=== PATIENT | male | born 1960 | race Caucasian/White ===

== ENCOUNTER 2024-11-11 13:38 | Inpatient (IN) | payer MEDICARE, BC ==
[~2024-11-11] VITALS: Ht 172.7 cm; Wt 98.0 kg
[~2024-11-11 13:38] MED LIST: ANASTROZOLE PO; GABAPENTIN PO; TEST200V33 IM; [UNRECOGNIZED DRUG - OTHER] PO
--- NOTE | 2024-11-11 13:44 | ELECTROCARDIOGRAPH REPORT ---
[facility] Test Date: 2024-11-11 Test Time: 13:41:09 Pat Name: [facility] Department: EMERGENCY ROOM Room: ED 5 Gender: M Paint Supervisor: FERNANDO : 1960 Requested By: CHRISTIANA SCOTT Order Number: [id number] Reading MD: Dr. Grayson Obrien Measurements Intervals Perry Rate: 107 P: 40 MI: 171 QRS: 116 QRSD: 103 T: -88 QT: 346 QTc: 462 Interpretive Statements Sinus tachycardia Probable left atrial enlargement Probable anterolateral infarct, acute Abnormal T, consider ischemia, inferior leads Electronically Signed On 11-11-2024 18:17:[address] Grayson Obrien Please click the below link to view image of tracing.
[2024-11-11 13:59] LABS: MEAN PLATELET VOLUME 8.6 FL (7.4-10.4); RED CELL DISTRIBUTION WIDTH 19.6 % (11.5-14.5)
--- NOTE | 2024-11-11 13:59 | Physician Documentation ---
History of Present Illness ~ Chief Complaint: See Chief Complaint Stated Complaint: SOB Time Seen by MD: 13:50 HPI 64-year-old male who presents with shortness of breath Per EMS, the patient was initially hypoxic with saturations in the 70s, speaking in 1 word sentences. He was placed on oxygen with good improvement. EKG showed possible STEMI on the read. He was given aspirin. The patient tells me that he began having symptoms yesterday afternoon. He reports gradually worsening shortness of breath, which became severe today. He denies fevers, productive cough, chest pain, abdominal pain, nausea or vomiting, or other new or different symptoms. He does report having leg swelling recently, and had an extensive cardiac workup that was unremarkable including a stress test with Dr. Rico. Currently, he states he feels much better now that he is on oxygen, denies significant shortness of breath or chest pain at this time. He does state it feels like it is hard to take a full breath. Medication Reconciliation Allergies: Coded Allergies: No Known Allergies (Unverified , 01/19/17) Scheduled Testosterone Cypionate (TESTOSTERONE CYPIONATE 200mg/ml 10ml vial), 1 ML IM Q2W, (Reported) [Anastrozole Sr], PO Q7D, (Reported) [Gabapentin], PO Q8H, (Reported) [T3t4], 9 MCG PO DAILY, (Reported) Review of Systems Constitutional: Denies: fever Respiratory: Reports: shortness of breath Cardiovascular: Denies: chest pain Physical Exam Vital Signs: Temperature: 97.5, Source: Temporal, Heart Rate: 104, Respiratory Rate: 20, BP: 118/78, Pulse Oximetry: 99, Weight: 98.000 Physical Exam General: This is a pleasant middle-aged man, not currently in distress Heart: Mild tachycardia, appears regular on palpation, appears sinus on the monitor, no loud murmur Lungs: Crackles in bilateral lung bases, diminished air movement bilateral, slightly increased respiratory rate but not in distress, on facemask oxygen Abdomen: Soft, distended abdomen, nontender Extremities: Warm and well-perfused, pitting edema to bilateral calves Neuro: Alert and oriented Progress Results/Orders Results/Orders Orders - CHRISTIANA SCOTT MD Chest,Single View (11/11/24 14:01) Monitor (11/11/24 13:42) Saline Lock (11/11/24 13:42) Oxygen (11/11/24 13:42) Hs Troponin I W Calculations (11/11/24 15:42) Hs Troponin I W Calculations (11/11/24 16:42) Page Hospitalist (11/11/24 14:29) Cta Chest Pe (11/11/24 14:29) Completed Orders - CHRISTIANA SCOTT MD Chest,Single View (11/11/24 14:01) Cbc/Diff (11/11/24 13:42) BMP (11/11/24 13:42) PBNP (11/11/24 13:42) Electrocardiogram (11/11/24 13:42) Hs Troponin I W Calculations (11/11/24 13:42) Man Diff (11/11/24 13:49) Furosemide Inj (Lasix Inj) (11/11/24 14:10) Furosemide 40mg Inj (Lasix Inj) (11/11/24 14:10) Iohexol 350mg/Ml 100ml (Omnipaque 350mg/ (11/11/24 15:34) Medications Received in ER Medications (Trade) Dose Ordered Sig/Duc Route PRN Reason Start Time Stop Time Status Last Admin Dose Admin (Lasix inj) 40 mg ONCE ONCE IV 11/11/24 14:10 11/11/24 14:11 DC 11/11/24 14:18 40 MG Vital Signs 11/11/24 11/11/24 11/11/24 11/11/24 13:40 13:52 14:02 15:31 Temp 97.5 Pulse 108 104 97 Resp 15 20 26 13 B/P (MAP) 118/78 (91) 113/72 (86) Pulse Ox 99 99 97 O2 Flow Rate 4.0 Laboratory Tests Test 11/11/24 13:49 11/11/24 15:46 White Blood Count 12.4 H Red Blood Count 4.71 Hemoglobin 12.2 L Hematocrit 38.0 L Mean Corpuscular Volume 80.7 Mean Corpuscular Hemoglobin 25.8 L Mean Corpuscular Hemoglobin Concent 32.0 L Red Cell Distribution Width 19.6 H Platelet Count 351 Mean Platelet Volume 8.6 Neutrophils (%) (Auto) 78.8 H Lymphocytes (%) (Auto) 12.7 L Monocytes (%) (Auto) 7.8 Eosinophils (%) (Auto) 0.4 Basophils (%) (Auto) 0.3 Neutrophils # (Auto) 9.8 H Lymphocytes # (Auto) 1.6 Monocytes # (Auto) 1.0 H Eosinophils # (Auto) 0.0 Basophils # (Auto) 0.0 CBC Comment Differential Total Cells Counted 100 Neutrophils % (Manual) 84.0 H Lymphocytes % (Manual) 8.0 L Monocytes % (Manual) 8.0 Platelet Estimate Normal Red Blood Cell Morphology Perf Polychromasia Few Basophilic Stippling Anisocytosis 2+ Sodium Level 136 Potassium Level 4.5 Chloride Level 101 Carbon Dioxide Level 27.9 Anion Gap 7 L Blood Urea Nitrogen 24 H Creatinine 1.49 H Estimated GFR/1.73 m2 47 BUN/Creatinine Ratio 16.1 Glucose Level 144 H Calcium Level 9.3 Troponin I High Sensitivity 77 *H Pro-B-Type Natriuretic Peptide 09998 H Albumin 3.3 L Chemistry Comments EKG/XRAY/CT/US/VASC/MRI EKG : Additional Comment I personally interpreted the EKG and this shows: Sinus tachycardic, rate 107, Q-waves in the anterior leads with a ST-elevation Chest X-Ray : Additional Comments I personally interpreted the x-ray, and it shows: Pulmonary edema, cardiomegaly, no pneumothorax or focal consolidation Consults/PCP Consults/PCP : Additional Comment Consult: I spoke to the internal medicine service, for admission in the hospital Medical Decision Making Differential Dx:Considerations: Include: anxiety, asthma, bronchitis, cardiogenic shock, CHF, COPD, dysrhythmia, pneumonia, pulmonary embolism, upper resp. infection Additional Infomation The patient presents with shortness of breath. Initially EMS sent the EKG as a possible field STEMI. On my initial evaluation this does not appear consistent with a STEMI, although he does have anterior Q-waves. On arrival he is feeling better after being placed on oxygen. He did not have chest pain. X-ray shows pulmonary edema, and he does have leg swelling, concerning for development of CHF. BNP is significantly elevated. Troponin is only slightly elevated, making STEMI or ACS less likely. We will obtain a CT PE study to rule out pulmonary embolus. He was given Lasix, and he will be admitted to the medicine service for further workup and treatment. Departure Impression: Primary Impression: Acute hypoxic respiratory failure Additional Impression: Congestive heart failure Referrals: NO PRIMARY CARE PROVIDER (PCP) Critical Care Note Critical Care Note Critical Care Note The very real possibility of a deterioration of this patient's condition requi red the highest level of my preparedness for sudden, emergent intervention. I provided critical care services, which included medication orders, frequent reevaluations of the patient's condition and response to treatment, ordering and reviewing test results, and discussing the case with various consultants. Excludes time spent performing separately billable procedures. The critical care time associated with the care of the patient was 45 minutes in the management of acute hypoxic respiratory failure due to congestive heart failure Signature Scribe Signature: ed Attestation: CHRISTIANA Finnegan MD Nov 11, 2024 13:59
[2024-11-11] MEDS ORDERED: furosemide 10 MG/1 ML 10ml inj IV ONE (14:10)
[2024-11-11 14:18] LABS: CREATININE 1.49 MG/DL (0.60-1.10); PRO BRAIN NATRIURETIC PEPTIDE 11954 PG/ML (0-125); TOTAL CARBON DIOXIDE 27.9 MMOL/L (24-32); eCRCL 47 ML/MIN; eGFR 47 ML/MIN
--- NOTE | 2024-11-11 14:21 | RADIOLOGY REPORT ---
CHEST RADIOGRAPH Indication: CP Technique: Single frontal view of the chest was obtained COMPARISON: None FINDINGS: Lines and Tubes: None Lungs: Moderate interstitial pulmonary edema Pleura: No effusion. No pneumothorax. Cardiomediastinal contours: Cardiomegaly. Bones: Unremarkable IMPRESSION: 1. Moderate interstitial pulmonary edema in the setting of cardiomegaly
[2024-11-11 15:24] LABS: LYMPHOCYTES % (MANUAL) 8.0 % (21-51); MONOCYTES % (MANUAL) 8.0 % (2-12); NEUTROPHILS % (MANUAL) 84.0 % (42-75); PLATELET ESTIMATE NORMAL
--- NOTE | 2024-11-11 17:46 | HISTORY AND PHYSICAL ---
History & Physical Providers to CC ~ History of Present Illness Reason for Admit\Complaint: Shortness of breaths History of Present Illness 64 years old male presented to the ER for evaluation of shortness of breath which started yesterday. Per EMS, patient was hypoxic with O2 sat in the 70s speaking one word sentences. He was placed on oxygen with good improvement. He denies having any fever chills nausea vomiting abdominal pain dysuria frequency urgency hematuria melena or bright red blood per rectum. Denies having any focal neurological symptoms. Patient evaluated with a chest x-ray shows moderate interstitial pulmonary edema in the setting of cardiomegaly. ProBNP is elevated. Patient has been admitted for new onset CHF. Allergies: Coded Allergies: No Known Allergies (Unverified , 01/19/17) Home Medications Home Medications Active Reported [Gabapentin] PO Q8H [T3t4] 9 Mcg PO DAILY TESTOSTERONE CYPIONATE 200mg/ml 10ml vial (Testosterone Cypionate) 200 Mg/1 Ml Vial 1 Ml IM Q2W [Anastrozole Sr] PO Q7D Past Medical History Past Medical History None Past Surgical History Surgical History Comment None Family History Family History: Family history was reviewed; no changes noted. Past Social History Social History Comment Does not smoke drink or do any drugs Health Maintenance Health Maintenance Current on his immunizations ROS ROS All other systems are reviewed and are negative except as mentioned in HPI Exam Vitals: Vital Signs Date Time Temp Pulse Resp B/P (MAP) Pulse Ox O2 Delivery O2 Flow Rate FiO2 11/11/24 15:31 97 13 113/72 (86) 97 4.0 11/11/24 13:40 97.5 General: Awake alert cooperative in no acute distress HEENT: Normocephalic atraumatic pupils round reactive to light and accommodation, extraocular movements intact, sclera anicteric, conjunctiva pinkish, moist oral mucosa, no rash or ulcers. Neck: Supple, no JVD, trachea midline, no lymphadenopathy. Chest: Crackles Cardiovascular: Regular rate rhythm, no murmur gallop or rub. Abdomen: Soft nontender, no organomegaly. Extremities: No cyanosis clubbing or edema. Central Nervous System: Nonfocal. Moves all four extremities Musculoskeletal: No joint swelling or deformities Skin: No rash or ulcers Diagnostic Data Last Recorded Lab Results: 11/11/24 1349 11/11/24 1349 Additional Plan 64 years old male presented to the ER for evaluation of shortness of breath x1 day. # new onset CHF: We will start him on IV Lasix. Check an echocardiogram. # type 2 MD: Likely due to demand ischemia. Continue monitor #code status: Full code MARIA L MIJARES MD Nov 11, 2024 17:46
[2024-11-11] MEDS ORDERED: magnesium Cl slow-release 64mg tablet PO PRN (17:50)
[2024-11-11] MEDS ORDERED: magnesium sulf-water 4G/100mL 100 ML IV PRN (17:50)
[2024-11-11] MEDS ORDERED: potassium Cl 40MEQ/1/2NS 520ml 520 ML IV PRN (17:50)
[2024-11-11] MEDS ORDERED: potassium Cl 20 mEq SR tablet PO PRN ×2 (17:50)
[2024-11-11] MEDS ORDERED: magnesium sulf-water 2g/50mL 50 ML IV PRN (17:50)
--- NOTE | 2024-11-11 18:16 | RADIOLOGY REPORT ---
CTA Chest with intravenous contrast INDICATION: sob, hypoxia, heart failure sudden onset COMPARISON: None TECHNIQUE: Multidetector spiral CTA of the chest was performed of the chest with intravenous contrast. PULMONARY ANGIOGRAPHY PROTOCOL was utilized using a bolus- tracking technique centered on the main pulmonary artery. Axial, coronal and sagittal multiplanar and MIP reformats were performed. Radiation Dose : 1. Chest: CTDI volume is 25 mGy. Dose-length product is 817 mGy*cm The dose indicators for CT are the volume Computed Tomography (CT) Dose Index (CTDIvol) and the Dose Length Product (DLP), and are measured in units of mGy and mGy-cm, respectively. These indicators are not patient dose, but values generated from the CT scanner acquisition factors. The report includes radiation exposure data for exposures received during this examination. Findings: Pulmonary artery: No pulmonary embolism Lower neck: Normal thyroid. Lungs: Multifocal pneumonia throughout both lungs. Heart/Vascular Structures: Normal heart size. No pericardial effusion. Lymph Nodes: Mediastinal lymphadenopathy, likely reactive. Pleura: Small bilateral pleural effusions Musculoskeletal: No acute osseous abnormality. Soft tissues: Normal. Upper abdomen: Limited portions of the upper abdomen are unremarkable. IMPRESSION: 1. No pulmonary embolism. 2. Multifocal pneumonia throughout both lungs. 3. Small bilateral pleural effusions.
[2024-11-11] MEDS: PERFLUTREN PROTEIN-A MICROSPHR (Optison) 0.22 MG/ML 3ML VIAL IV ONE (18:22)
[2024-11-11] MEDS ORDERED: FURO20TA4 PO (18:39)
[2024-11-11] MEDS ORDERED: METF-1203 PO (18:39)
[2024-11-11] MEDS ORDERED: FENO160T PO (18:39)
[2024-11-11] MEDS ORDERED: LEVO75TA7 PO (18:39)
[2024-11-11] MEDS ORDERED: PREG75CA76 PO (18:39)
[2024-11-11] MEDS ORDERED: AMIT-274 PO (18:39)
[2024-11-11] MEDS ORDERED: morphine 4 MG/ML inj SYRINge IV PRN ×2 (18:47)
[2024-11-11] MEDS: K and/or MAG REPLACEMENT MC SCH (20:00)
[2024-11-11] MEDS: furosemide 10 MG/1 ML 10ml inj IV SCH (20:08)
[2024-11-11] MEDS: heparin, porcine 5000 units/ml vial SQ SCH (20:11)
[2024-11-11] MEDS: ondansetron/PF 4mg/2ml inj IV PRN (20:52)
[2024-11-12] VITALS (7 sets, daily range): BP systolic 91–106; BP diastolic 60–66; PULSE 90–100; RESP 13–22; TEMP 97.3–97.6; O2SAT 93–96
[2024-11-12 03:01] LABS: MEAN PLATELET VOLUME 9.1 FL (7.4-10.4); RED CELL DISTRIBUTION WIDTH 19.4 % (11.5-14.5)
[2024-11-12 03:05] LABS: CREATININE 1.65 MG/DL (0.60-1.10); TOTAL CARBON DIOXIDE 32.0 MMOL/L (24-32); eCRCL 43 ML/MIN; eGFR 42 ML/MIN
[2024-11-12] MEDS: levoTHYROXINE 75mcg tablet PO SCH (08:27)
[2024-11-12] MEDS: HYDROcodone/acetaminophen 5mg/325mg tablet PO PRN (16:38)
--- NOTE | 2024-11-12 17:52 | CONSULTATION REPORT ---
History of Present Illness Providers to CC CC: RENARD RICO MD ~ Reason for Admit\Admit Dx: Cardiology consultation History of Present Illness Patient presented secondary to increased shortness for breath. Initially, on arrival he had hypoxia with one word sentences. He states he woke up with significant shortness for breath. Has not felt well for the past couple weeks. Has not noticed intermittent lower extremity edema. Denies chest pain or pressure. Had a recent cardiac workup which included a stress test in March 2024 which was negative and an echocardiogram which demonstrated an LVEF of 60%. Was found [place] [address]. High sensitivity troponins 77, 91, 92. Creatinine 1.65 today. Preliminary echocardiogram demonstrates an overall LVEF of 45-50% with takotsubo appearance. Allergies: Coded Allergies: No Known Allergies (Unverified , 01/19/17) Home Medications Home Medications Active Reported Pregabalin 75 Mg Capsule 1 Cap PO BID Levothyroxine Sodium 75 Mcg Tablet 1 Tab PO DAILY Elavil (Amitriptyline Hcl) 50 Mg Tablet 1.5 Tab PO DAILY Furosemide 20 Mg Tablet 1 Tab PO BID Fenofibrate 160 Mg Tablet 1 Tab PO DAILY Metformin HCl 500 Mg Tablet 1 Tab PO BID Past Medical History Medical History Comment Hypertension Prediabetes Hyperlipidemia Spinal stenosis Hypothyroidism Past Surgical History Surgical History Comment Lower back Hip surgery Past Social History Social History Comment Rare alcohol use. No smoking. No drugs. Physical Exam Last Vital Signs Recorded: RN Vital Signs have been reviewed: Yes, Temperature: 97.6, Source: Oral, Heart Rate: 94, Respiratory Rate: 18, BP: 91/62, Pulse Oximetry: 94, Weight: 98.000 Physical Exam General: Awake, alert, oriented. No apparent distress Neck: Supple. Normal range of motion. No JVD Respiratory: Lungs are wheezing on the right. Clear on the left. He is on supplemental oxygen. Chest: Normal shape and size. No accessory muscle use. Cardiovascular: Regular rate and rhythm. S1-S2. No murmur, gallop, rub. Extremities: No lower extremity edema, cyanosis or clubbing. Neurologic: Alert and oriented x4. Nonfocal Psychiatric: Normal mood and affect. Skin: Normal color. Warm and dry. Review of Systems ROS Patient complaining of shortness for breath as noted in HPI and intermittent lower extremity edema. Was asked, but otherwise denies review of systems. Results EKG EKG EKG demonstrated sinus tachycardia rate of 107. There is T-wave inversions inferior hypercholesterolemia. For R-wave progression. Echocardiogram Echocardiogram Preliminary echocardiogram demonstrates an overall LVEF of 45-50% with takotsubo appearance on the LV. Other Other CTA Chest with intravenous contrast INDICATION: sob, hypoxia, heart failure sudden onset COMPARISON: None TECHNIQUE: Multidetector spiral CTA of the chest was performed of the chest with intravenous contrast. PULMONARY ANGIOGRAPHY PROTOCOL was utilized using a bolus- tracking technique centered on the main pulmonary artery. Axial, coronal and sagittal multiplanar and MIP reformats were performed. Radiation Dose : 1. Chest: CTDI volume is 25 mGy. Dose-length product is 817 mGy*cm The dose indicators for CT are the volume Computed Tomography (CT) Dose Index (CTDIvol) and the Dose Length Product (DLP), and are measured in units of mGy and mGy-cm, respectively. These indicators are not patient dose, but values generated from the CT scanner acquisition factors. The report includes radiation exposure data for exposures received during this examination. Findings: Pulmonary artery: No pulmonary embolism Lower neck: Normal thyroid. Lungs: Multifocal pneumonia throughout both lungs. Heart/Vascular Structures: Normal heart size. No pericardial effusion. Lymph Nodes: Mediastinal lymphadenopathy, likely reactive. Pleura: Small bilateral pleural effusions Musculoskeletal: No acute osseous abnormality. Soft tissues: Normal. Upper abdomen: Limited portions of the upper abdomen are unremarkable. IMPRESSION: 1. No pulmonary embolism. 2. Multifocal pneumonia throughout both lungs. 3. Small bilateral pleural effusions. Electronically Signed by:ELI GUERRA MD Date & Time: 11/11/241812 Diagram Lab Result Diagram: 11/12/24 0222 11/12/24 0222 Assessment/Plan Additional Plan Patient presents secondary to significant shortness for breath. The following is his problem list: [place] [address] Preliminary echocardiogram with LVEF 45-50% with takotsubo cardiomyopathy appearance. --continue Lasix to keep euvolemic. --we will start metoprolol --blood pressure has been on the low side. We will consider addition of ACEi/ARB/ARNI Minimally elevated troponins Likely TN type 2 secondary to acute hypoxic respiratory failure Acute kidney injury versus chronic kidney disease --monitoring. CT shows multifocal pneumonia throughout both lungs as well as small pleural effusions. --antibiotic management per hospitalist. Acute hypoxic respiratory failure --on supplemental oxygen Other comorbidities: History of prediabetes Hyperlipidemia Hypothyroidism Hypertension Case discussed with Dr. Sukumar Rico who is in agreement with this plan. Supervising MD Supervising Physician: PEÑA Vee NP Nov 12, 2024 17:52
[2024-11-12] MEDS: metoprolol succinate 25mg (24-HOUR) SR. Tablet PO SCH (17:55)
--- NOTE | 2024-11-12 18:49 | CARDIOLOGY REPORT ---
APPROVED REPORT EXAM: Comprehensive 2D, Doppler, and color-flow Echocardiogram. Patient Location: ED 5 Heart Rate: 90's bpm Rhythm: SINUS Indications CONGESTIVE HEART FAILIRE ELEVATED PBNP Parking Lot Signaler: NONE Previous echo: NONE SHORTNESS OF BREATH CARDIOMEGALY 2D Dimensions RVDd 3.2 cm LVDd 5.3 cm LVOT Diameter 2.09 (1.8-2.4cm) M-Mode Dimensions Left Atrium(MM) 3.00 (2.5-4.0cm) Aortic Root 2.79 (2.2-3.7cm) Aortic Valve AoV Peak Vamshi. 114.5 cm/s AoV VTI 18.7 cm AO Peak GR. 5.2 mmHg AO Mean GR. 4 mmHg LVOT VTI 15.03 cm LVOT Peak Vamshi. 78.9 cm/s ALCIDES(VTI)/BSA 2.78 cm2/m2 ALCIDES (VTI) 2.78 cm2 AV DI 0.81 % Mitral Valve MV E Velocity 77.0 cm/s MV Peak Gr. 5 mmHg MV DECEL TIME 84 ms MV A Velocity 85.2 cm/s MV PHT 64 ms E/A Ratio 0.9 MVA (PHT) 3.44 cm2 MV VMax 111.4 cm/s LEFT VENTRICLE Normal LV size and normal thickness with abnormal systolic fiunction. Akinetic mid to apical segments. Apical aneurysm verses takotsubo cardiomyopathy. Contractility is best at the base decreasing toward the apex. EF: 45-50 % at base, EF: 0% at apex. Overall LVEF is 35%. RIGHT VENTRICLE RV is normal size and function. ATRIA The left atrium size is normal. AORTIC VALVE Trileaflet AV appears mildly sclerotic without stenosis. No insufficiency. MITRAL VALVE Mild MV annular calcification without stenosis. Trace regurgitation. TRICUSPID VALVE TV appears structurally normal with trace regurgitation. PULMONIC VALVE Pulmonic valve is not well visualized. GREAT VESSELS The aortic root is normal in size. PERICARDIUM Normal pericardium. No effusion. Other Information Study Quality: Adequate but TDS plax/psax windows due to body habitus Conclusion Normal LV size and normal thickness with abnormal systolic fiunction. Akinetic mid to apical segments. Apical aneurysm verses takotsubo cardiomyopathy. Contractility is best at the base decreasing toward the apex. EF: 45-50 % at base, EF: 0% at apex. Overall LVEF is 35%. RV is normal size and function. The left atrium size is normal. Trileaflet AV appears mildly sclerotic without stenosis. No insufficiency. Mild MV annular calcification without stenosis. Trace regurgitation. TV appears structurally normal with trace regurgitation. Normal pericardium. No effusion.
[2024-11-13] VITALS (7 sets, daily range): BP systolic 92–118; BP diastolic 60–78; PULSE 86–102; RESP 13–22; TEMP 97.5–99.8; O2SAT 89–97
[2024-11-13 07:04] LABS: MEAN PLATELET VOLUME 8.6 FL (7.4-10.4); RED CELL DISTRIBUTION WIDTH 19.5 % (11.5-14.5)
[2024-11-13 07:26] LABS: CREATININE 1.95 MG/DL (0.60-1.10); TOTAL CARBON DIOXIDE 30.6 MMOL/L (24-32); eCRCL 36 ML/MIN; eGFR 35 ML/MIN
--- NOTE | 2024-11-13 11:45 | PROGRESS NOTE ---
Progress Note Cardiology Providers to CC ~ Subjective Subjective Patient states he feels less short of breath. He has still on supplemental oxygen. States he diuresed much more than is documented. Objective Result Diagram: 11/13/2463911/13/24639 Objective General: Awake, alert, oriented. No apparent distress Respiratory: Lungs cleared diminished in the bases. Chest: Normal shape and size. No accessory muscle use. Cardiovascular: Regular rate and rhythm. S1-S2. No murmur, gallop, rub. Extremities: No lower extremity edema, cyanosis or clubbing. Neurologic: Alert and oriented x4. Nonfocal Psychiatric: Normal mood and affect. Skin: Normal color. Warm and dry. Problem\Assessment\Plan Additional Plan Patient presents secondary to significant shortness for breath. The following is his problem list: [place] [address] Preliminary echocardiogram with LVEF 45-50% with takotsubo cardiomyopathy appearance. --continue Lasix to keep euvolemic. --we will start metoprolol --blood pressure has been on the low side. We will consider addition of ACEi/ARB/ARNI if able to tolerate. Minimally elevated troponins Likely ME type 2 secondary to acute hypoxic respiratory failure Acute kidney injury versus chronic kidney disease --monitoring. CT shows multifocal pneumonia throughout both lungs as well as small pleural effusions. --antibiotic management per hospitalist. Acute hypoxic respiratory failure --on supplemental oxygen. Titrate down PRN Acute kidney injury --recommend careful monitoring. I will decrease Lasix. Other comorbidities: History of prediabetes Hyperlipidemia Hypothyroidism Hypertension Case discussed with Dr. Sukumar Rico who is in agreement with this plan. There is a change in patient condition. We will follow up as an outpatient. Please do not hesitate to recontact us if any further cardiology needs. Supervising Physician: PEÑA Vee NP Nov 13, 2024 11:45
[2024-11-13] MEDS: azithromycin/NS 500mg/250ml 250 ML IV ONE (12:17)
[2024-11-13] MEDS: CefTRIAXone/D5W-Rocephin 1gm 50 ML IV SCH (12:21)
--- NOTE | 2024-11-13 15:14 | PROGRESS NOTE ---
Daily Progress Note Providers to CC ~ Antibiotic Timeout Antibiotic Ordered?: Yes Subjective Reports feeling better. Objective Vital Signs Date Time Temp Pulse Resp B/P (MAP) Pulse Ox O2 Delivery O2 Flow Rate FiO2 11/13/24 11:00 97.5 93 21 92/60 (71) 94 Nasal Cannula 2.0 11/12/24 20:29 28 Result Diagram: 11/13/24 0640 11/13/24 0640 Normocephalic, atraumatic, extraocular movements intact, sclerae anicteric, conjunctiva pink, moist oral mucosa, no rash or ulcers Neck supple, no JVD Chest: Basilar crackles, occasional rhonchi Heart: Regular rate rhythm, no murmur or gallop rub Abdomen is soft nontender no organomegaly Extremities no cyanosis clubbing or edema Neuro exam nonfocal. Other Results Medications reviewed Problem\Assessment\Plan 64 years old male presented to the ER for evaluation of shortness of breath x1 day # new onset CHF: Echocardiogram shows EF of 35-40%. Likely takotsubo syndrome. Continue Lasix metoprolol. Treat per Cardiology recommendations # multifocal pneumonia: Seen on the CT chest. Continue IV antibiotics # ANAYELI: Worsening. Likely due to Lasix. Adjust dose as necessary #code status: Full code per patient wishes. Date of Service: Nov 13, 2024 Billing Provider: MARIA L MIJARES MD Common Visit Codes: [id number] INP/OBS CARE(HIGH) MARIA L MIJARES MD Nov 13, 2024 15:14
[2024-11-14] VITALS (7 sets, daily range): BP systolic 96–128; BP diastolic 64–78; PULSE 94–115; RESP 13–23; TEMP 97–98.7; O2SAT 92–98
--- NOTE | 2024-11-14 04:09 | PROGRESS NOTE ---
DATE: 11/12/2024 DICTATING PHYSICIAN: Alex Steiner MD SUBJECTIVE: No new complaints. The patient reports feeling better. OBJECTIVE: VITAL SIGNS: Temperature 97.5, pulse is 86, respiratory rate is 27, blood pressure is 103/56, and O2 saturation is 93% on 4 liters. HEENT: Normocephalic and atraumatic. Extraocular movements are intact. NECK: Supple. CHEST: Clear to auscultation. No wheezes, crackles, or rhonchi. HEART: Regular rate and rhythm, no murmur, gallop or rub. ABDOMEN: Soft and nontender, no organomegaly. EXTREMITIES: No cyanosis, clubbing, or edema. NEUROLOGIC: Grossly nonfocal. LABORATORY DATA: White count is 8.9, hemoglobin 11.9, hematocrit 37.5, platelet count is 298, neutrophils 70.5%, and lymphocytes are 18.9%. Sodium 139, potassium 4.0, chloride 102, bicarb is 32, BUN 27, creatinine 1.65. ASSESSMENT AND PLAN: * Acute respiratory failure: Continue supplemental oxygen. * Acute CHF: The patient has no prior history. Echocardiogram shows EF of 45-50% with Takotsubo cardiomyopathy. Continue Lasix. Treat per Cardiology recommendations. * Type 2 SC secondary to demand ischemia: No intervention recommended per Cardiology. * Acute kidney injury: Continue to monitor creatinine. * ?Pneumonia: Empiric antibiotics if no improvement after the patient has been treated for CHF. * Code status: Full code. Alex Steiner MD TID: [id number] RECEIPT: [id number] JEAN Spear
[2024-11-14 07:30] LABS: MEAN PLATELET VOLUME 8.8 FL (7.4-10.4); RED CELL DISTRIBUTION WIDTH 19.2 % (11.5-14.5)
[2024-11-14 07:48] LABS: CREATININE 1.76 MG/DL (0.60-1.10); TOTAL CARBON DIOXIDE 27.9 MMOL/L (24-32); eCRCL 40 ML/MIN; eGFR 39 ML/MIN
[2024-11-14] MEDS ORDERED: morphine 4 MG/ML inj SYRINge IV PRN ×2 (12:40)
--- NOTE | 2024-11-14 19:42 | PROGRESS NOTE ---
Daily Progress Note Providers to CC ~ Antibiotic Timeout Antibiotic Ordered?: Yes Subjective Patient was seen in his room he is still feeling weak mentioned that he is not ready to go home today . patient is already evaluated by Cardiology team for CHF. Objective Vital Signs Date Time Temp Pulse Resp B/P (MAP) Pulse Ox O2 Delivery O2 Flow Rate FiO2 11/14/24 15:42 18 11/14/24 15:00 98.7 102 96/64 (75) 92 Room Air 11/14/24 06:00 3.0 11/13/24 17:46 32 Result Diagram: 11/14/24 0708 11/14/24 0708 General-patient not in any acute distress, alert awake oriented, chronically ill-appearing HEENT-atraumatic normocephalic, neck supple without elevated JVD, no thyromegaly or carotid bruit. No lymphadenopathy bilaterally. Eyes-no icterus or pallor seen in eyes Chest-clear to auscultation bilaterally, breathing nonlabored no tachypnea, no wheezing, no crepitation, no crackles. Heart-S1-S2 normal, regular heart rate no murmur Abdomen bowel sounds positive on auscultation, soft nondistended nontender no guarding, no rigidity Neurology-grossly intact, nonfocal alert awake Extremity- no pedal edema able to move all 4 extremities Psychiatry - patient is not confused or agitated cooperated during physical examination Problem\Assessment\Plan 64 years old male presented to the ER for evaluation of shortness of breath x1 day # new onset CHF: Echocardiogram shows EF of 35-40%. Likely takotsubo syndrome. on Lasix metoprolol. will Treat per Cardiology recommendations # multifocal pneumonia: Seen on the CT chest. Continue IV antibiotics # ANAYELI: Worsening. Likely due to Lasix. will adjust dose as necessary #code status: Full code per patient wishes. Patient's current condition is guarded we will continue to follow patient in AM Date of Service: Nov 14, 2024 Billing Provider: JEANNE DOBSON MD Common Visit Codes: [id number] INP/OBS CARE(HIGH) JEANNE DOBSON MD Nov 14, 2024 19:42
[2024-11-14] MEDS: polyethylene glycol 3350 17gm powd pack PO ONE (21:44)
[2024-11-15 02:00] VITALS: BP 107/67; PULSE 101; RESP 16; TEMP 97.3; O2SAT 95
[2024-11-15 06:00] VITALS: BP 114/77; PULSE 101; RESP 16; TEMP 98.1; O2SAT 95
[2024-11-15 07:00] LABS: CREATININE 1.64 MG/DL (0.60-1.10); TOTAL CARBON DIOXIDE 29.7 MMOL/L (24-32); eCRCL 43 ML/MIN; eGFR 42 ML/MIN
[2024-11-15 07:06] LABS: MEAN PLATELET VOLUME 8.8 FL (7.4-10.4); RED CELL DISTRIBUTION WIDTH 19.0 % (11.5-14.5)
[2024-11-15 08:00] VITALS: RESP 18; O2SAT 93
[2024-11-15 11:00] VITALS: BP 109/69; PULSE 94; RESP 18; TEMP 97.8; O2SAT 95
[2024-11-15 14:26] VITALS: BP 111/69; PULSE 102; RESP 18; TEMP 98; O2SAT 92
--- NOTE | 2024-11-15 19:12 | DISCHARGE SUMMARY ---
Discharge Summary Providers to CC ~ Discharge Summary Admission Diagnosis: SOB Hospital Course DATE OF ADMISSION: November 11, 2024 DATE OF DISCHARGE: November 15, 2024 CBC testing done on November 15, 2024 WBC 7.5 sed rate 86, hemoglobin 11.5 hematocrit 35.8 platelet count 344. Serum chemistry done on November 15, 2024 sodium 134 potassium 3.7 creatinine 1.64 GFR 42 procalcitonin 0.18 ECHOCARDIOGRAMConclusion Normal LV size and normal thickness with abnormal systolic fiunction. Akinetic mid to apical segments. Apical aneurysm verses takotsubo cardiomyopathy. Contractility is best at the base decreasing toward the apex. EF: 45-50 % at base, EF: 0% at apex. Overall LVEF is 35%. RV is normal size and function. The left atrium size is normal. Trileaflet AV appears mildly sclerotic without stenosis. No insufficiency. Mild MV annular calcification without stenosis. Trace regurgitation. TV appears structurally normal with trace regurgitation. Normal pericardium. No effusion. CTA CHEST PE-IMPRESSION: 1. No pulmonary embolism. 2. Multifocal pneumonia throughout both lungs. 3. Small bilateral pleural effusions. CHEST,SINGLE VIEW-IMPRESSION: 1. Moderate interstitial pulmonary edema in the setting of cardiomegaly Discharge Diagnosis\Comment: # new onset CHF: Echocardiogram shows EF of 35-40%. # multifocal pneumonia: # ANAYELI: Operations\Procedures: None Consultants: Dr. Myron Rico Complications: None Condition on DC: Stable Discharge Summary: 64 years old male presented to the ER for evaluation of shortness of breath x1 day # new onset CHF: Echocardiogram shows EF of 35-40% Likely takotsubo syndrome. on Lasix metoprolol. will Treated per Cardiology recommendations . Pat evaluated the patient for Dr. Tio Rico and consult note reviewed. Counseling done regarding congestive heart failure and compliance with the medications recommended # multifocal pneumonia: Seen on the CT chest. Continue IV antibiotics # ANAYELI: Worsening. Likely due to Lasix. will adjust dose as necessary #code status: Full code per patient wishes. Patient is feeling better he has been afebrile and getting discharged to rehab in stable condition. Medication reconciliation done for rehab facility. Patient is seen and examined on the day of discharge. All labs, diagnostic workup and discharge plan discussed with patient before his discharge. All questions and queries answered to the best of my professional medical knowledge. I heard patient's concerns and address appropriately. Patient was evaluated by Physical therapy team before discharge, travel agency manager involved in patient's discharge plan. General-patient not in any acute distress, alert awake oriented, chronically ill-appearing HEENT-atraumatic normocephalic, neck supple without elevated JVD, no thyromegaly or carotid bruit. No lymphadenopathy bilaterally. Eyes-no icterus or pallor seen in eyes Chest-clear to auscultation bilaterally, breathing nonlabored no tachypnea, no wheezing, no crepitation, no crackles. Heart-S1-S2 normal, regular heart rate no murmur Abdomen bowel sounds positive on auscultation, soft nondistended nontender no guarding, no rigidity Neurology-grossly intact, nonfocal alert awake Extremity- no pedal edema able to move all 4 extremities Psychiatry - patient is not confused or agitated cooperated during physical examination *Problems/Diagnosis: (1) Congestive heart failure Status: Acute (2) Acute hypoxic respiratory failure Status: Acute Total Time Spent on D/C: > 30 Minutes Date of Service: Nov 15, 2024 Billing Provider: JEANNE DOBSON MD Common Visit Codes: 53846-VAI/OBS DISCH DAY >30min JEANNE DOBSON MD Nov 15, 2024 19:12
== END 2024-11-15 16:59 | DRG 871 ==
LOC: ER 13:39 → ED HOLD 16:31 → EDBEDREQ 20:14 → PCU 3S 11-12 13:57
PROVIDERS: ADMIT Internal Medicine; ATTEND Internal Medicine
PROC: B32T1ZZ Computerized Tomography (CT Scan) of Left Pulmonary Artery using Low Osmolar Contrast (ICD-10-PCS; principal; 2024-11-11)
PROC: B3201ZZ Computerized Tomography (CT Scan) of Thoracic Aorta using Low Osmolar Contrast (ICD-10-PCS; 2024-11-11)
PROC: B32S1ZZ Computerized Tomography (CT Scan) of Right Pulmonary Artery using Low Osmolar Contrast (ICD-10-PCS; 2024-11-11)
DX: A41.9 Sepsis, unspecified organism (principal); I21.A1 Myocardial infarction type 2; J18.9 Pneumonia, unspecified organism; J96.01 Acute respiratory failure with hypoxia; I51.81 Takotsubo syndrome; N17.9 Acute kidney failure, unspecified; Z20.822 Contact with and (suspected) exposure to COVID-19; I11.0 Hypertensive heart disease with heart failure; I50.9 Heart failure, unspecified; E03.9 Hypothyroidism, unspecified; E78.5 Hyperlipidemia, unspecified; R73.03 Prediabetes; T50.1X5A Adverse effect of loop [high-ceiling] diuretics, initial encounter
CPT/HCPCS: 36415; 71045; 71275; 80048; 83735; 83880; 84145; 84484; 85007; 85025; 85651; 87081; 87811; 93005; 93306; 94760; 96374; 96375; 97110; 97116; 97161; 97530; 99291; A6258; A6590; G0378; J0456; J0696; J1644; J1938; J2405; J7040; Q9967